=== PATIENT | female | born 1995 | race Caucasian/White ===

== ENCOUNTER 2024-04-20 21:26 | Emergency (ER) | payer BC, SELFPAY ==
[2024-04-20 21:32] VITALS: BP 141/88
[2024-04-20 21:41] VITALS: BMI 30.6
[2024-04-20] MEDS: DUONEB 3 ML INH (21:44)
--- NOTE | 2024-04-20 22:20 | ED.GENMED ---
History of Present Illness
General
Chief Complaint: Breathing Problem
Source: patient
Exam Limitations: none
Time Seen by Provider: 04/20/24 22:08
Nursing documentation reviewed up to this point in time: agreed with
History of Present Illness
History of Present Illness:
This is a 28-year-old woman with history of asthma, follows with a printing plate setter at [place], maintained on Breo. Asthma generally well-controlled but since Sunday, 5 days ago she complains of cough, shortness of breath, nasal congestion and sore
throat. Was evaluated 5 days ago at [facility] treated with nebs and was noted to have some right tonsillar injection with a white spot, rapid strep was negative but she was started on clindamycin for potential strep throat as well
as a 5-day course of prednisone 40 mg daily which finished yesterday. covid testing (-). She did call her printing plate setter the following day and clindamycin was changed to Augmentin.
Despite antibiotic and 5 days of oral steroids she continues with shortness of breath, cough, chest tightness and wheezing, more so over the past 24 hours. She notes low-grade fever 5 days ago which has since resolved.
She has been using her Xopenex inhaler 4 times daily, every 6 hours without significant improvement.
She states her peak flow was around 300 this afternoon.
No close contacts with similar symptoms. No recent travel. No leg pain or swelling.
She denies risk of last normal menstrual period was 1 week ago. Normal and on time. She is not maintained on control pills.
Besides Breo and as needed Xopenex she is maintained on as needed Lopressor for PVCs/SVT.
Past History
Past History
ED Past Medical History: Arrthythmia (SVT/PVCs), Asthma and Other (Migraine headaches)
ED Past Surgical History: Orthopedic (Left foot)
Social History
Tobacco: Non-smoker
Alcohol: None
Personal: Single
Living: with family
Employment: Employed
Family History
Family History: Other (Noncontributory)
Phy Exam
Physical Exam
Physical Exam:
GENERAL: 28-year-old female appears her stated age, awake and alert, appears in mild respiratory distress with mild resting tachypnea but able to speak in full sentences. Pulse ox 99 to 100% on room air. Intermittent brief dry cough is noted.
Low-grade fever noted 99.1 �F.
EYE: anicteric
NECK: Supple, nontender, no meningismus, no significant adenopathy. No JVD.
ENT: posterior pharynx is clear, no exudate nor injection, oral mucosa is moist. TM clear b/l, nares patent.
CARDIAC: Regular rate and rhythm. no murmur.
LUNGS: Mild resting tachypnea, mildly decreased breath sounds throughout with scattered expiratory wheezing with forced expiration only.
ABDOMEN: Soft, nondistended, without focal tenderness, normoactive BS.
NEUROLOGICAL: Alert and oriented x3, no focal neuro deficits. Gait is steady.
SKIN: Mildly hot to touch and dry, normal color, skin intact. No rash.
MUSCULOSKELETAL: No C/C/E. peripheral pulses are full and equal b/l. No palpable tenderness.
PSYCH: Mildly anxious. Cooperative.
Scores
Heart Failure Risk
Heart Failure Risk Score: Not Applicable
Course
Orders/Labs/Results
Orders:
Orders
04/20/24 21:43
Ipratropium/Albuterol Sulfate [Duoneb] 3 ml .ROUTE .STK-MED ONE
Ipratropium/Albuterol Sulfate [Duoneb] 3 ml INH R NOW ONE
04/20/24 22:19
0.9% Sodium Chloride 1000 ml [Nss] 1,000 ml IV BOLUS
Acetaminophen [Tylenol] 1,000 mg PO NOW STA
Dexamethasone Sod Phosphate [Decadron] 20 mg IV NOW STA
Magnesium Sulfate 2 Gram/50 ml [Magnesium Sulfate] 2 gram in 50 ml IV NOW
CR Chest - 2 Views Urgent
Comment:
Reason For Exam: sob, cough, wheezing, fever
04/20/24 22:32
Basic Metabolic Panel Urgent
Complete Blood Count/With Diff Urgent
Lactic Acid Urgent
04/20/24 23:33
Albuterol Sulfate [Ventolin Nebules] 7.5 mg INH R NOW STA
Benzonatate [Tessalon Perles] 200 mg PO NOW STA
Abnormal Lab Results
04/20/24
22:32
WBC 17.9 H 10^3/uL
(4.8-10.8)
Hct 35.1 L %
(37.0-47.0)
Abs Immat Gran (auto) 0.8 H 10^3/uL
(0-0.05)
Absolute Neuts (auto) 11.3 H 10^3/uL
(1.4-6.5)
Absolute Monos (auto) 2.1 H 10^3/uL
(0.1-0.6)
Immature Gran % 4.5 H %
(0-0.5)
Lymphocytes % 17.0 L %
(20.5-51.1)
Monocytes % 11.8 H %
(1.7-9.3)
04/20/24 22:32
04/20/24 22:32
Vital Signs
Temp: 99.1 F
Initial and Last Documented VS:
Initial Vital Signs
Temp Pulse Resp BP Pulse Ox
98.2 F 122 28 141/88 99
04/20/24 21:32 04/20/24 21:32 04/20/24 21:32 04/20/24 21:32 04/20/24 21:32
Last Documented Vital Signs
Temp Pulse Resp BP Pulse Ox
99.1 F 122 28 141/88 99
04/20/24 22:40 04/20/24 21:32 04/20/24 21:32 04/20/24 21:32 04/20/24 21:32
MDM/Problems Addressed
Differential Diagnosis Includes:
Patient presents with exacerbation of asthma, URI symptoms. Concern for occult pneumonia.
Low-grade fever noted on exam.
No history of thromboembolism nor risk factors for such.
No history of CHF nor risk factors for such as well.
Will initiate IV fluids, IV Decadron, IV magnesium.
Has been given DuoNeb nebulizer recently. Will consider additional nebulizers/hour-long nebulizer
Will check labs, lactic acid as well as chest x-ray.
Chronic conditions affecting care: Asthma
Acute Exacerbation and/or Progression of Chronic Illness: Asthma
*Radiology
Radiology exam reviewed: preliminary read by ED provider (Chest x-ray is unremarkable. Clear lung cabrera. No evidence of hyperinflation.)
*Pulse Oximetry
Patient hypoxic: no
*Critical Care Note
Total Time (30-74mins, 75-104mins- exclusive of procedures): Not Applicable
Update Note
Update Note:
04/21/2024 0055 AM
Patient feeling markedly improved, cough has markedly improved, resting comfortably.
Labs show mildly elevated white blood cell count but likely related to recent oral steroids.
Chemistries are unremarkable including normal lactic acid.
Chest x-ray is unremarkable.
Will discharge to home with a lengthier/tapering course of prednisone. Recommend she complete course of Augmentin.
Continue daily Breo inhaler as well as continue Xopenex inhaler increasing to every 2-4 hours as needed for cough, wheezing.
Will add Tessalon for as needed cough as well.
Prompt follow-up with printing plate setter for recheck.
Out of work note provided.
Return precautions discussed.
ED Attending Note
-
Portions of this chart may have been created with voice recognition software.� Occasional wrong word or��sound alike� substitutions may have occurred due to the inherent limitations of voice recognition software.
Discharge Plan
Departure
Patient Disposition: Home (Routine Discharge)
Date of Disposition: 04/21/24
Time of Disposition: 00:58
Patient with high blood pressure during this ER visit?: No
Condition: Good
Discharge Problem:
Acute asthma exacerbation
Instructions: Asthma, Adult (DC)
Prescriptions:
New
prednisone 10 mg Tablet
See Rx Instructions .ROUTE .COMPLEX Qty: 45 0RF
Rx Instructions:
Take By Mouth:
50 mg daily x3 days, 40 mg daily x3 days,
30 mg daily x3 days, 20 mg daily x3 days,
10 mg daily x3 days
benzonatate 200 mg capsule
200 mg PO TID PRN (Reason: Cough) Qty: 30 0RF
Discontinued
budesonide-formoterol [Symbicort] 80-4.5 mcg/actuation Hfa Aerosol Inhaler
2 puff INHALATION BID
Referrals:
UNKNOWN - PT DOES,NOT KNOW [Family Provider] -
Stand Alone Forms: Return to Work
Interventions
Interventions:
*Risk Screen - Suicide Last Done: 04/20/24 21:32
*General Assessment Last Done: 04/20/24 21:32
*Neglect/Abuse Screening Last Done: 04/20/24 21:32
ED- Fall Risk Assessment Last Done: 04/20/24 21:47
ED- Cardiac Assessment Last Done: 04/20/24 21:47
ED- Pulmonary Assessment Last Done: 04/20/24 21:47
Discharge Date and Time
Print Language: FAROESE
[2024-04-20] MEDS: TYLENOL 1000 MG PO (22:32)
[2024-04-20] MEDS: DECADRON 20 MG IV (22:32)
[2024-04-20] MEDS: MAGNESIUM SULFATE 50 IV (22:36)
[2024-04-20] MEDS: NSS 1000 IV (22:36)
[2024-04-20 22:42] LABS: % Basophils 0.8 % (0-2); % Eosinophils 2.6 % (0-6); % Immature Granulocytes 4.5 % (0-0.5); % Monocytes 11.8 % (1.7-9.3); % Neutrophils 63.3 % (42.2-75.2); Absolute Basophils 0.2 10^3/uL (0-0.2); Absolute Eosinophils 0.5 10^3/uL (0-0.7); Absolute Immature Granulocytes 0.8 10^3/uL (0-0.05); Absolute Monocytes 2.1 10^3/uL (0.1-0.6); Absolute Neutrophils 11.3 10^3/uL (1.4-6.5); Hematocrit 35.1 % (37.0-47.0); Hemoglobin 12.2 g/dL (12.0-16.0); Mean Corp Hgb Conc. 34.8 g/dL (33.0-37.0); Mean Corpuscular Volume 83.4 fL (81.0-99.0); Mean Platelet Volume 9.1 fL (7.4-10.4); Nucleated Red Blood Cells % 0 %; Platelet Count 343 10^3/uL (130-400); Red Blood Cell Count 4.21 10^6/uL (4.20-5.40); Red Cell Dist. Width 12.1 % (11.5-14.5); White Blood Cell Count 17.9 10^3/uL (4.8-10.8)
[2024-04-20 22:54] LABS: Lactic Acid 1.8 mmol/L (0.7-2.0)
[2024-04-20 22:59] LABS: Blood Urea Nitrogen 14 mg/dl (7-17); Calcium 10.1 mg/dl (8.4-10.2); Carbon Dioxide 25 mmol/L (22-30); Chloride 102 mmol/L (98-107); Estimated Creatinine Clearance > 125 ml/min; Glucose 87 mg/dl (70-99); Sodium 138 mmol/L (135-145); eGFR > 60.00
[2024-04-20] MEDS: VENTOLIN NEBULES 7.5 MG INH (23:40)
[2024-04-20] MEDS: TESSALON PERLES 200 MG PO (23:40)
== END 2024-04-21 01:20 | disposition home or self-care (01) ==
LOC: EMR 21:26
PROVIDERS: EMERGENCY PHYSICIAN Emergency Medicine
DX: J45.901 Unspecified asthma with (acute) exacerbation (principal); I47.10 Supraventricular tachycardia, unspecified; I49.3 Ventricular premature depolarization; Z79.899 Other long term (current) drug therapy
CPT/HCPCS: 99284; 94640; 96365; 96366; 96375; 71046; 80048; 83605; 85025

== ENCOUNTER 2025-04-26 00:54 | Emergency (ER) | payer BC, SELFPAY ==
[2025-04-26 01:07] VITALS: BP 142/83
[2025-04-26 01:27] LABS: Urine Character Cloudy (Clear)
[2025-04-26 01:28] LABS: Hematocrit 36.7 % (37.0-47.0); Hemoglobin 12.0 g/dL (12.0-16.0); Mean Corp Hgb Conc. 32.7 g/dL (33.0-37.0); Mean Corpuscular Volume 90.0 fL (81.0-99.0); Nucleated Red Blood Cells % 0 %; Platelet Count 258 10^3/uL (130-400); Red Cell Dist. Width 12.3 % (11.5-14.5)
[2025-04-26 01:35] LABS: Urine Red Blood Cell >100 /HPF (0-2); Urine White Cell >100 /HPF (0-5)
[2025-04-26 01:39] LABS: HCG, Serum Qualitative Screen Negative
[2025-04-26 01:42] LABS: ALT (SGPT) 17 U/L (0-35); AST (SGOT) 17 U/L (14-36); Albumin 4.4 g/dl (3.5-5.0); Alkaline Phosphatase 64 U/L (38-126); Blood Urea Nitrogen 17 mg/dl (7-17); Calcium 9.5 mg/dl (8.4-10.2); Carbon Dioxide 25 mmol/L (22-30); Chloride 109 mmol/L (98-107); Glucose 107 mg/dl (70-99); Potassium 4.2 mmol/L (3.5-5.1); Sodium 140 mmol/L (135-145); Total Protein 7.1 g/dl (6.3-8.2); eGFR > 60.00
== END 2025-04-26 04:30 | disposition left against medical advice (07) ==
LOC: EMR 00:54
PROVIDERS: EMERGENCY PHYSICIAN Emergency Medicine
DX: R30.0 Dysuria (principal); R35.0 Frequency of micturition; Z53.21 Procedure and treatment not carried out due to patient leaving prior to being seen by health care provider
CPT/HCPCS: 80053; 81003; 81015; 84703; 85025; 87077; 87086; 87186